=== PATIENT | female | born 2000 | race American Indian/Alaskan Native ===

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

== ENCOUNTER 2022-02-04 14:39 | Inpatient (IN) | payer MEDICAID ==
[2022-02-04] MEDS ORDERED: LACTATED RINGERS 1,000 ML ONE (16:58)
[2022-02-04] MEDS ORDERED: miSOPROStol 200 MCG TAB PR PRN (17:00)
[2022-02-04] MEDS ORDERED: CARBOPROST TROMETHAMINE 250 MCG/1 ML INJ IM PRN (17:00)
[2022-02-04] MEDS ORDERED: MINERAL OIL 30 ML ORAL LIQD PO PRN (17:00)
[2022-02-04] MEDS ORDERED: ONDANSETRON 4 MG/2 ML INJ IV PRN (17:00)
[2022-02-04] MEDS ORDERED: LOPERAMIDE 2 MG CAP PO PRN (17:00)
[2022-02-04] MEDS ORDERED: OXYTOCIN DRIP 30 UNITS/500 ML BAG IV SCH ×2 (17:00)
[2022-02-04] MEDS ORDERED: ACETAMINOPHEN 325 MG TAB PO PRN (17:00)
[2022-02-04] MEDS ORDERED: OXYTOCIN 10 UNIT/1 ML INJ IM PRN (17:00)
[2022-02-04] MEDS ORDERED: LACTATED RINGERS 1,000 ML IV SCH (17:00)
[2022-02-04] MEDS ORDERED: PROMETHAZINE 25 MG TAB PO PRN (17:00)
[2022-02-04] MEDS ORDERED: NalbUPHINE 10 MG/1 ML INJ IV PRN (17:00)
[2022-02-04] MEDS ORDERED: fentaNYL 100 MCG/2 ML INJ IV PRN (17:00)
[2022-02-04] MEDS ORDERED: ePHEDrine SULFATE 50 MG/1 ML INJ IV PRN (17:00)
[2022-02-04] MEDS ORDERED: TERBUTALINE 1 MG/1 ML INJ SUB-Q PRN (17:00)
[2022-02-04] MEDS ORDERED: LIDOCAINE (2%) 20 MG/1 ML VIAL 20 ML MDV INFILTRATI SCH (17:00)
[2022-02-04] MEDS ORDERED: METHYLERGONOVINE MALEATE 0.2 MG/ML VIAL IM PRN (17:00)
--- NOTE | 2022-02-04 17:00 | History and Physical Report ---
History of Present Illness Date of examination: 02/04/22 Chief complaint: Leakage of fluid at home at 2pm History of present illness: at Past History Past Medical History: other (anemia) Past Surgical History: no surgical history Social history: no significant social history - Obstetrical History Expected Date of Delivery: 02/18/22 Actual Gestation: 38 Week(s) 0 Day(s) : 2 Number of Pregnancies: 1 Number of Living Children: 1 Medications and Allergies Allergies Allergy/AdvReac Type Severity Reaction Status Date / Time No Known Allergies Allergy Unverified 11/26/17 13:57 Home Medications Medication Instructions Recorded Confirmed Last Taken Type Pnv No.95/Ferrous Fum/Folic AC 1 tab PO DAILY 01/17/18 01/17/18 01/16/18 10:00 History [ Formula Tablet] miSOPROStoL [Cytotec] 400 mcg PO Q4H #6 tablet 01/24/18 Unknown Rx Review of Systems All systems: negative (LOF clear in color) - Vital Signs Vital signs: Vital Signs Pulse BP 75 106/66 02/04/22 16:35 02/04/22 16:35 Temp Pulse Resp BP Pulse Ox 81 107/69 02/04/22 16:51 02/04/22 16:51 - Physical Exam Breasts: Positive: deferred Cardiovascular: Regular rate Lungs: Positive: Normal air movement Abdomen: Positive: soft Genitourinary (Female): Positive: normal external genitalia Vagina: Positive: normal moisture Uterus: Positive: enlarged (non-tender, gravid) - Obstetrical FHR: category 1 Uterine Contraction Monitor Mode: External Cervical Dilatation: 1 (clear fluid seen on pad) Cervical Effacement Percentage: 50 station: -3 Results All other labs normal. Assessment and Plan Term IUP at 38.0wks with PROM, GBS+ from records 1. Admit and give PCN for GBS prophylaxis 2. Augment with pitocin 3. May have IV pain med or epidural as needed 4. Expect
[2022-02-04] MEDS ORDERED: PENICILLIN G POTASSIUM 5 MIL.UNITS in SODIUM CHLORIDE 0.9% 50 ML IV ONE (18:00)
[2022-02-04 18:06] LABS: Hematocrit 31.2 % (30.3-42.9); Hemoglobin 10.2 gm/dl (10.1-14.3); Mean Corpuscular HGB Conc 33 % (30-34); Mean Corpuscular Volume 81 fl (79-97); Platelet Count 205 K/mm3 (140-440); Red Blood Count 3.87 M/mm3 (3.65-5.03); Red Cell Distribution Width 17.7 % (13.2-15.2)
[2022-02-04] MEDS ORDERED: PENICILLIN G POTASSIUM 3 MIL.UNITS in SODIUM CHLORIDE 0.9% 50 ML IV SCH (22:00)
[2022-02-04] MEDS ORDERED: miSOPROStol 25 MCG TAB PO SCH (23:45)
--- NOTE | 2022-02-05 01:01 | Ultrasound Report ---
ULTRASOUND OBSTETRIC INDICATION / CLINICAL INFORMATION: Term PROM. Clinical Gestational Age (GA): 38 week 1 day TECHNIQUE: Transabdominal. COMPARISON: None available. FINDINGS: There is a single intrauterine . Biparietal Diameter = 9.6 cm = 39 weeks, 1 day(s). Head Circumference = 33.3 cm = 38 weeks, 1 day(s). Abdominal Circumference = 33.1 cm = 37 weeks, 0 day(s). Femur Length = 6.4 cm = 33 weeks, 0 day(s). Average Ultrasound Age (AUA) = 36 weeks, 6 day(s). Heart Rate: 120 beats per minute. Estimated Weight in grams (if calculated): 2930 Estimated Weight Growth Percentile (if calculated): 21 Position: cephalic. Cervix: closed. Length in cm (if measured): Placenta: anterior and free of the os. Amniotic Fluid Volume: decreased Amniotic Fluid Index (JOHANNY) in cm (if calculated): 4.5. Maternal Adnexa: No significant abnormality. IMPRESSION: 1. Single, living intrauterine with estimated sonographic age of 36 weeks, 6 day(s). 2. Oligohydramnios Signer Name: Moe Starks MD Signed: 02/05/2022 12:56 AM Workstation Name: [id number]
--- NOTE | 2022-02-05 02:13 | Anesthesia Consultation ---
Anesthesia Consult and Med Hx Date of service: 02/05/22 - Airway Anesthetic Teeth Evaluation: Good ROM Head & Neck: Adequate Mental/Hyoid Distance: Adequate Mallampati Class: Class II Intubation Access Assessment: Probably Good - Pulmonary Exam CTA: Yes - Cardiac Exam Cardiac Exam: RRR - Pre-Operative Health Status ASA Pre-Surgery Classification: ASA2 Proposed Anesthetic Plan: Epidural - Pulmonary Hx Asthma: No COPD: No Hx Pneumonia: No - Cardiovascular System Hx Hypertension: No - Central Nervous System Hx Seizures: No Hx Psychiatric Problems: No - Endocrine Hx Renal Disease: No Hx End Stage Renal Disease: No Hx Hypothyroidism: No Hx Hyperthyroidism: No - Hematic Hx Anemia: Yes Hx Sickle Cell Disease: No - Other Systems Hx Alcohol Use: No
[2022-02-05] MEDS ORDERED: ePHEDrine SULFATE 50 MG/1 ML INJ IV PRN (02:41)
[2022-02-05] MEDS ORDERED: NALOXONE 0.4 MG/1 ML INJ IV PRN (02:41)
[2022-02-05] MEDS ORDERED: fentaNYL-BUPIV 2 MCG/ML-0.125% 200 MCG/100 ML BAG EPIDURAL SCH (03:00)
[2022-02-05] MEDS ORDERED: LIDOCAINE (2%) 20 MG/1 ML VIAL 20 ML MDV INFILTRATI ONE (04:16)
--- NOTE | 2022-02-05 05:36 | Procedure Note ---
OB Delivery Note - Delivery Date of Delivery: 02/05/22 Surgeon: FOREIGN ALEJO Estimated blood loss: 500cc - Vaginal Delivery presentation: vertex Delivery position: OA Intrapartum events: PROM->1hr before delivery Delivery induction: misoprostol Delivery monitor: external FHT, external uterine Route of delivery: Delivery placenta: spontaneous Delivery cord: 3 umbilical vessels Episiotomy: midline Delivery laceration: 2nd degree Delivery repair: vicryl, other (Monocryl) Anesthesia: local, epidural Delivery comments: 2nd degree perineal laceration was repaired in layers with 2-0 Vicryl, 3-0 Vicryl, and 4-0 Monocryl. There was excellent re-approximation and hemostasis. A vaginal sweep was performed to ensure that there were no retained sponges or instruments in the vagina. - A at 1 minute: 8 at 5 minutes: 9 Infant Gender: Female
[2022-02-05] MEDS ORDERED: BENZOCAINE/MENTHOL 20/0.5% TOP SPRAY 56 GM TP PRN (05:38)
[2022-02-05] MEDS ORDERED: LANOLIN/ZINC/DIMETHICONE (LANSINOH) 7 GM TP PRN (05:38)
[2022-02-05] MEDS ORDERED: WITCH HAZEL/ GLYCERIN PAD TP PRN (05:38)
[2022-02-05] MEDS ORDERED: MAGNESIUM HYDROXIDE (MOM) ORAL LIQD UDC PO PRN (05:38)
[2022-02-05] MEDS ORDERED: ACETAMINOPHEN 325 MG TAB PO PRN (05:38)
[2022-02-05] MEDS: IBUPROFEN 800 MG TAB PO SCH ×3 (07:30→18:20)
[2022-02-05] MEDS: HYDROcodone/ACETAMINOPHEN 5-325 MG TAB PO PRN ×3 (08:28→21:10)
[2022-02-05] MEDS: DOCUSATE SODIUM 100 MG CAP PO SCH ×2 (09:11→21:08)
--- NOTE | 2022-02-05 22:04 | Progress Note ---
Spinal Anesthesia Block - Spinal Anesthesia Block Start Time: 02:18 Stop Time: 02:30 Performed by:: LALY NAZARIO Procedure: Patient is requesting epidural for labor and pain. H&P, labs were reviewed. Patient ID confirmed, all questions and concerns were answered, and consent was signed. Timeout was performed at bedside. Patient in sitting position. Sterile prep and drape was performed. 3ml of 1% lidocaine skin wheal at L3- L4 interspace. 17-gauge Tuohy epidural needle was advanced to loss of resistance with saline technique cm. Negative CSF, negative blood. Epidural catheter advanced to 15 centimeters. Negative aspiration, test dose 3ml 1.5% Lidocaine with epi - negative. Sterile dressing applied. Patient tolerated procedure.
--- NOTE | 2022-02-05 22:05 | Post Anesthesia Evaluation ---
- Post Anesthesia Evaluation Patient Participated: Yes Airway Patent: Yes Stable Respiratory Function: Yes Nausea/Vomiting: No Temp > 96.8F: Yes Pain Manageable: Yes Adequeate Hydration: Yes Anesthesia Complications: No Block Receding Appropriately: Yes
[2022-02-06] MEDS: IBUPROFEN 800 MG TAB PO SCH ×3 (01:07→18:00)
[2022-02-06] MEDS: HYDROcodone/ACETAMINOPHEN 5-325 MG TAB PO PRN ×2 (03:31→10:40)
[2022-02-06 09:37] LABS: Hematocrit 27.4 % (30.3-42.9); Hemoglobin 8.8 gm/dl (10.1-14.3); Mean Corpuscular HGB Conc 32 % (30-34); Mean Corpuscular Volume 81 fl (79-97); Platelet Count 201 K/mm3 (140-440); Red Blood Count 3.38 M/mm3 (3.65-5.03); Red Cell Distribution Width 17.5 % (13.2-15.2)
[2022-02-06] MEDS: DOCUSATE SODIUM 100 MG CAP PO SCH (11:53)
--- NOTE | 2022-02-06 13:10 | Consultation ---
History of Present Illness - Reason for Consult Consult date: 02/06/22 Reason for consult: Alden 10 - Chief Complaint Chief complaint: Leakage of fluid at home at 2pm - History of Present Psychiatric Illness The patient is a 22 year old female with no psychiatric history whom psych consult was placed due to Alden score of 10. The patient was seen in the room with her new born baby. She presents with appropriate affect. She is calm, alert and oriented x3. The patient is naive to psychotropic medications. She reports doing well; she denies depression and denies having excessive anxiety. The patient reports her support system such as her grandmother, mother and sisters. She denies any current suicidal/homicidal ideation and denies hallucinations. PAST PSYCHIATRIC HISTORY: Diagnoses: Denies Suicide attempts or Self-harm behavior: Denies Prior psychiatric hospitalizations: Denies Substance Abuse history: marijuana Previous psychiatric medications tried: Denies Outpatient treatment: Denies PAST MEDICAL HISTORY: None reported or document Family Psychiatric History: None reported or documented SOCIAL HISTORY Marital Status: Single Living Arrangements:Lives with grandmother Employment Status: Unemployed Access to guns/weapons: Denies Education:12th grade History of Abuse:Denies Legal History: Denies REVIEW OF SYSTEMS Constitutional: Negative for weight loss ENT: Negative for stridor Respiratory: Negative for cough or hemoptysis All other systems reviewed and are negative MENTAL STATUS EXAMINATION General Appearance and Behavior: Age appropriate, wearing appropriate clothes, cooperative, polite with questioning, good eye contact Cooperation: cooperative Psychomotor Behavior: Psychomotor normal Mood: good Affect and affective range: congruent with stated mood Thought Process: Goal directed Thought Content: Reality oriented Speech: Normal volume, and tone Suicidal Ideation: Denies Homicidal Ideation: Denies Hallucination: Denies Delusions: None elicited Impulse Control: Limited Insight and Judgment: Limited Memory: limited Attention:attentive Orientation: Alert and oriented Diagnoses: Mental health evaluation Treatment Plan Continue home medications Medical: per primary Sitter: defer to primary Disposition: Do not recommend acute psychiatric inpatient treatment. [employer] will provide patient with psychiatric outpatient resources Will sign off. Thanks Case staffed with Dr. Rangle Medications and Allergies Allergies Allergy/AdvReac Type Severity Reaction Status Date / Time No Known Allergies Allergy Unverified 11/26/17 13:57 Home Medications Medication Instructions Recorded Confirmed Last Taken Type Pnv No.95/Ferrous Fum/Folic AC 1 tab PO DAILY 01/17/18 02/05/22 01/16/18 10:00 History [ Formula Tablet] Active Meds: Active Medications Acetaminophen (Acetaminophen 325 Mg Tab) 650 mg PO Q4H PRN PRN Reason: Pain MILD(1-3)/Fever >100.5/CALI Hydrocodone Bitart/Acetaminophen (Hydrocodone/Acetaminophen 5-325 Mg Tab) 2 each PO Q6H PRN PRN Reason: Pain, Moderate (4-6) Last Admin: 02/06/22 11:53 Dose: 2 each Benzocaine/Menthol (Benzocaine/Menthol 20/0.5% Top [place] 56 Gm) 1 spray TP PRN PRN PRN Reason: Episiotomy Pain Last Admin: 02/05/22 09:11 Dose: 1 spray Docusate Sodium (Docusate Sodium 100 Mg Cap) 100 mg PO BID AMA Last Admin: 02/06/22 11:53 Dose: 100 mg Ibuprofen (Ibuprofen 800 Mg Tab) 800 mg PO Q6H AMA Last Admin: 02/06/22 07:07 Dose: 800 mg Magnesium Hydroxide (Magnesium Hydroxide (Mom) Oral Liqd Udc) 30 ml PO HS PRN PRN Reason: Constipation Multi-Ingredient Ointment (Lanolin/Zinc/Dimethicone (Lansinoh) 7 Gm) 1 applic TP PRN PRN PRN Reason: Sore Nipples Sodium Chloride (Sodium Chloride 0.9% 10 Ml Flush Syringe) 10 ml IV PRN PRN PRN Reason: LINE FLUSH Witch [place]/Glycerin (Witch [place]/ Glycerin Pad) 1 each TP PRN PRN PRN Reason: Hemorrhoid/cleansing/soothing Last Admin: 02/05/22 09:11 Dose: 1 each Mental Status Exam - Vital signs Last Vital Signs Temp 98.2 F 02/06/22 07:46 Pulse 66 02/06/22 07:46 Resp 18 02/06/22 07:46 BP 94/60 02/06/22 07:46 Pulse Ox 97 02/06/22 07:46 Results Result Diagrams: 02/06/22 08:56 Abnormal lab results 02/06/22 Range/Units 08:56 RBC 3.38 L (3.65-5.03) M/mm3 Hgb 8.8 L (10.1-14.3) gm/dl Hct 27.4 L (30.3-42.9) % MCH 26 L (28-32) pg RDW 17.5 H (13.2-15.2) % All other labs normal.
--- NOTE | 2022-02-06 13:19 | Progress Note ---
Assessment and Plan PPD#1 doing well 1. Pt seen by Psychiatry due to depression score at 10 2. Will discharge home later if ok by them All questions encouraged and answered. Subjective Date of service: 02/06/22 Principal diagnosis: PPD#1 Interval history: Pt has no complaints and wants to go home. Vag bleed less than a period, denies pelvic pain and voiding without difficulty. pt is breast feeding Objective - Constitutional Vitals: Vital Signs - 12hr 02/06/22 02/06/22 02:18 07:46 Temperature 97.7 F 98.2 F Pulse Rate 72 66 Respiratory 20 18 Rate Blood Pressure 100/65 94/60 [Left] O2 Sat by Pulse 97 97 Oximetry General appearance: Present: no acute distress - Neck Neck: normal ROM - Respiratory Respiratory effort: normal - Breasts Breasts: deferred - Cardiovascular Rhythm: regular Extremities: No edema - Gastrointestinal General gastrointestinal: Present: soft, non-tender - Genitourinary Female genitourinary: other (Fundus, non-tender, 2cm below umbilicus and lochia scant) - Neurologic Neurologic: moves all extremities - Psychiatric Psychiatric: cooperative - Labs CBC & Chem 7: 02/06/22 08:56 Labs: Abnormal lab results 02/06/22 Range/Units 08:56 RBC 3.38 L (3.65-5.03) M/mm3 Hgb 8.8 L (10.1-14.3) gm/dl Hct 27.4 L (30.3-42.9) % MCH 26 L (28-32) pg RDW 17.5 H (13.2-15.2) % Medications & Allergies - Medications Allergies/Adverse Reactions: Allergies No Known Allergies Allergy (Unverified 11/26/17 13:57) Home Medications: Home Medications Medication Instructions Recorded Confirmed Last Taken Type Pnv No.95/Ferrous Fum/Folic AC 1 tab PO DAILY 01/17/18 02/05/22 01/16/18 10:00 History [ Formula Tablet] Active Medications: Generic Name Dose Route Start Last Admin Trade Name Freq PRN Reason Stop Dose Admin Acetaminophen 650 mg 02/05/22 05:38 Acetaminophen 325 Mg Tab PO Q4H PRN Pain MILD(1-3)/Fever >100.5/CALI Hydrocodone Bitart/Acetaminophen 2 each 02/05/22 05:38 02/06/22 11:53 Hydrocodone/Acetaminophen 5-325 Mg Tab PO 2 each Q6H PRN Administration Pain, Moderate (4-6) Benzocaine/Menthol 1 spray 02/05/22 05:38 02/05/22 09:11 Benzocaine/Menthol 20/0.5% Top [place] 56 Gm TP 1 spray PRN PRN Administration Episiotomy Pain Docusate Sodium 100 mg 02/05/22 10:00 02/06/22 11:53 Docusate Sodium 100 Mg Cap PO 100 mg BID AMA Administration Ibuprofen 800 mg 02/05/22 06:00 02/06/22 07:07 Ibuprofen 800 Mg Tab PO 800 mg Q6H AMA Administration Magnesium Hydroxide 30 ml 02/05/22 05:38 Magnesium Hydroxide (Mom) Oral Liqd Udc PO HS PRN Constipation Multi-Ingredient Ointment 1 applic 02/05/22 05:38 Lanolin/Zinc/Dimethicone (Lansinoh) 7 Gm TP PRN PRN Sore Nipples Sodium Chloride 10 ml 02/05/22 06:00 Sodium Chloride 0.9% 10 Ml Flush Syringe IV PRN PRN LINE FLUSH Witch [place]ymberly/Glycerin 1 each 02/05/22 05:38 02/05/22 09:11 Witch [place]/ Glycerin Pad TP 1 each PRN PRN Administration Hemorrhoid/cleansing/soothing
--- NOTE | 2022-02-06 14:55 | Discharge Summary ---
Providers - Providers Date of Admission: 02/05/22 04:58 Attending physician: AUGUSTO BENNETT 02/05/22 10:50 Consult to Case Management [CONS] Routine Services Needed at Discharge: Other Notified:: Yes Phone number called:: [phone] Comment:: late entry to [facility] and hx of THC use 02/05/22 22:51 Consult to Mental Health [CONS] Routine Reason For Exam: scored 10 on edinburgh Primary care physician: AUGUSTO BENNETT Hospitalization Reason for admission: rupture of membranes, IUP at term (GBS+) Delivery: Episiotomy: none Laceration: 2nd degree Other procedures: none complications: none Discharge diagnosis: IUP at term delivered [place] baby: female Hospital course: Term preg at 38wks with PROM, GBS+; Pt had uncomplicated and 2nd laceration repaired by Dr. Luke. care uneventful and pt wanted to go home of day#1, hence her discharge. Pt was also evaluated by psychiatry due to elevated depression score test and no in hospital treatment recommended by them at this time. Disposition: 30 STILL A PATIENT Plan - Provider Discharge Summary Additional instructions: [] Smoking cessation referral if applicable(refer to patient education folder for contact #) [] Refer to [facility]'s [facility] [address] Booklet Call your doctor immediately for: * Fever > 100.5 * Heavy vaginal bleeding ( >1 pad per hour) * Severe persistent headache * Shortness of breath * Reddened, hot, painful area to leg or breast * Drainage or odor from incision. * Keep incision clean and dry at all times and follow doctor's instructions regarding bathing/showering - Follow up plan Follow up: AUGUSTO BENNETT MD [Primary Care Provider] - 7 Days Forms: [facility] Discharge Summary
[2022-02-06 16:19] VITALS: BP 104/62
== END 2022-02-06 19:58 | disposition home or self-care (01) | DRG 775 ==
LOC: TRG 14:39 → APU 14:39 → LD 19:09 → TRG 02-05 04:57 → LD 02-05 04:58 → OB 02-05 08:45
PROVIDERS: ADMIT Obstetrics & Gynecology; ATTEND Obstetrics & Gynecology
PROC: 10E0XZZ Delivery of Products of Conception, External Approach (ICD-10-PCS; principal; 2022-02-05)
PROC: 0KQM0ZZ Repair Perineum Muscle, Open Approach (ICD-10-PCS; 2022-02-05)
PROC: 0W8NXZZ Division of Female Perineum, External Approach (ICD-10-PCS; 2022-02-05)
PROC: 3E0R3BZ Introduction of Anesthetic Agent into Spinal Canal, Percutaneous Approach (ICD-10-PCS; 2022-02-05)
PROC: 00HU33Z Insertion of Infusion Device into Spinal Canal, Percutaneous Approach (ICD-10-PCS; 2022-02-05)
DX: O42.02 Full-term premature rupture of membranes, onset of labor within 24 hours of rupture (principal); Z3A.38 38 weeks gestation of pregnancy; Z37.0 Single live birth; Z20.822 Contact with and (suspected) exposure to COVID-19; O99.824 Streptococcus B carrier state complicating childbirth; O70.1 Second degree perineal laceration during delivery; O69.81X0 Labor and delivery complicated by cord around neck, without compression, not applicable or unspecified; O99.344 Other mental disorders complicating childbirth; F32.A Depression, unspecified
CPT/HCPCS: 36415; 76816; 85014; 85018; 85027; 86592; 86850; 86900; 86901; G0378; J3490; J2540; J7120; U0003